=== PATIENT | male | born 1945 | race Caucasian/White ===

== ENCOUNTER 2023-12-02 10:04 | Emergency (ER) | payer MEDICARE ==
[2023-12-02] MEDS: Lidocaine 1% with EPINEPHrine 1:100,000 20 ML MDV INJECT ONE (11:33)
[2023-12-02] MEDS: Bacitracin Oint 1 GM U/D Packet TOP ONE (11:33)
[2023-12-02] MEDS: Diphtheria,Pertussis(Acell),Tetanus Vaccine 0.5 ML Syringe IM ONE (12:25)
== END 2023-12-02 12:30 | disposition home or self-care (01) ==
LOC: JP.ED 10:04
DX: S09.90XA Unspecified injury of head, initial encounter (principal); S01.01XA Laceration without foreign body of scalp, initial encounter; S51.011A Laceration without foreign body of right elbow, initial encounter; S51.811A Laceration without foreign body of right forearm, initial encounter; I10 Essential (primary) hypertension; E11.9 Type 2 diabetes mellitus without complications; E78.00 Pure hypercholesterolemia, unspecified; W01.198A Fall on same level from slipping, tripping and stumbling with subsequent striking against other object, initial encounter; Y93.01 Activity, walking, marching and hiking; Y92.89 Other specified places as the place of occurrence of the external cause; Z79.82 Long term (current) use of aspirin; Z79.899 Other long term (current) drug therapy; Z79.4 Long term (current) use of insulin; Z88.8 Allergy status to other drugs, medicaments and biological substances; Z23 Encounter for immunization
CPT/HCPCS: 12001; 70450; 70450-26; 72125; 72125-26; 76377; 76377-26; 90471; 90715; 99283-25